=== PATIENT | female | born 1990 | race Caucasian/White ===

== ENCOUNTER 2018-09-19 21:32 | Emergency (ER) | payer OTHER ==
[2018-09-28 18:40] LABS: APPEARANCE,URINE CLEAR (CLEAR); COLOR,URINE YELLOW (YELLOW); OCCULT BLOOD,URINE NEGATIVE (NEGATIVE); PH URINE 5.5 (5.0 - 8.0); UROBILINOGEN URINE 0.2 Eu (0.2-1.0)
[2018-09-28 18:41] LABS: BASOPHILS % 0.4 % (0.0-1.5); NEUTROPHILS # 5.4 # k/uL (1.4-7.7); eGFR (Non-African) > 60
[2018-11-17 13:33] VITALS: BP 146/72
== END 2018-09-19 23:09 ==
LOC: ED 21:32
DX: R10.32 Left lower quadrant pain (principal); M54.9 Dorsalgia, unspecified; R39.11 Hesitancy of micturition
CPT/HCPCS: 36415; 80053; 81002; 85025; 99282; 99283; S1016

== ENCOUNTER → 2018-09-24 | Emergency (ER) | payer OTHER ==
[~2018-09-24] MED LIST: NORMAL SALINE 1,000 ML IV.SOLN IV ONE; ONDANSETRON HCL/PF 4 MG/ 2ML VIAL ONE
[2018-11-17 13:33] VITALS: BP 146/72
== END ==
LOC: ED 16:12
DX: R11.2 Nausea with vomiting, unspecified (principal)
CPT/HCPCS: 99282; 99283; J2405; J7030; S1016